=== PATIENT | male | born 1995 | race Caucasian/White ===

== ENCOUNTER 2019-07-09 00:39 | Inpatient (IN) | payer OTHER ==
[~2019-07-09] VITALS: Ht 177.8 cm; Wt 50.8 kg
--- NOTE | ~2019-07-09 | PROC ---
[address] [address] PROCEDURE REPORT Name: HILARIA RINCON Room: [address] IN M.R.#: [id number] Admission: 07/09/19 Attend Phys: Lito Frost Discharge: 07/10/19 Date of : 89 Report #: [id number] THIS REPORT FOR: //name// For GI report, please see the Provation report in Perceptive 7 content. By: 06Medical Records Staff KISHA /MEL
[~2019-07-09 00:39] MED LIST: BENADRYL25 MG PO; DARVOCET-N 1001 EACH PO; IBUPROFEN 200200 M1 PO; IBUPROFEN 600600 M1 PO; NOHOMEMEDICATIONS; OMEPRAZOLE40 MG PO; ONDANSETRON HCL4 M2 PO; PROAIR HFA8.5 GM IH; TAMIFLU30 MG PO; ZYRTEC10 M5 PO
[2019-07-09 00:44] VITALS: BP 147/84
[2019-07-09 00:58] LABS: HEMOGLOBIN 18.9 gm/dL (14.0-18.0); RDW-CV 12.9 % (10.5-14.5); WBC 19.2 thou/uL (4.0-11.0)
[2019-07-09 01:00] LABS: HEMATOCRIT 53.5 % (42.0-52.0); MCH 30.7 pg (26.0-34.0); MCHC 35.3 g/dL (28.0-37.0); MPV 9.2 fl. (7.2-11.1); NUCLEATED RBCS 0 /100WBC; PLATELET COUNT* 276 thou/uL (150-400); RBC 6.15 mil/uL (4.50-6.00)
[2019-07-09 01:04] LABS: CALCIUM 10.5 mg/dL (8.5-10.1); CREATININE 1.9 mg/dL (0.6-1.3); POTASSIUM 3.7 mmol/L (3.5-5.1)
[2019-07-09 01:08] LABS: ALBUMIN 5.8 g/dL (3.4-5.0); TOTAL BILIRUBIN 1.8 mg/dL (<0.1-1.0); TOTAL PROTEIN 10.2 g/dL (6.4-8.2)
[2019-07-09 02:09] LABS: ABSOLUTE EOSINOPHILS 0.4 thou/uL (0.0-0.7); ABSOLUTE LYMPHOCYTES 1.3 thou/uL (0.8-5.3); ABSOLUTE MONOCYTES 0.6 thou/uL (0.0-1.2); ABSOLUTE NEUTROPHILS 16.9 thou/uL (1.6-8.1); PLATELET ESTIMATE ADEQUATE
[2019-07-09 02:10] LABS: ANISOCYTOSIS Occasional; TOXIC GRANULATION 1+
[2019-07-09 03:23] VITALS: BP 130/74
[2019-07-09 04:00] VITALS: BP 126/81
--- NOTE | 2019-07-09 04:53 | NUR ---
PATIENT ADMITTED TO ROOM 108 FROM THE ER AT APPROXIMATELY 0345. VSS ON RA. PAIN WELL CONTROLLED AT THIS TIME. NO NAUSEA OR VOMITING SINCE BEING ADMITTED TO UNIT AT THIS TIME. PATIENT IS NPO AT THIS TIME. PATIENT ORIENTED TO ROOM AND POLICIES AND FALL AGREEMENT SIGNED. ASSESSMENT CHARTED. IV FLUIDS STARTED IN RIGHT AC-NS @ 100ML/HR. MOTHER AT BEDSIDE. PATIENT PUT IN SPECIAL CONTACT ISOLATION PER PROTOCOL D/T LIQUID STOOLS HE HAS BEEN HAVING DURING THE LAST 24HRS. PATIENT INSTRUCTED TO USE CALL LIGHT WHEN NEEDING ASSISTANCE. HOURLY ROUNDS MADE. WILL CONTNUE WITH PLAN OF CARE AND NURSING TO MONITOR.
[2019-07-09 10:30] VITALS: BP 137/78
[2019-07-09 12:37] LABS: CALCIUM 8.3 mg/dL (8.5-10.1); MAGNESIUM 1.7 mg/dL (1.8-2.4); POTASSIUM 3.8 mmol/L (3.5-5.1)
[2019-07-09 16:30] VITALS: BP 133/77
--- NOTE | 2019-07-09 19:00 | NUR ---
PATIENT PLEASANT AND COOPERATIVE W/ ASSESS AND CARES. STATES FEELING BETTER SHIFT PROGRESSED. FAMILY MEMBERS PRESENT IN THRU SHIFT. C/O SILVER AT TIMES. FLUIDS INFUSING W/O DIFF. HRLY ROUNDS DONE. PATIENT RESTING IN BED AT THIS TIME W/ FAMILY PRESENT. REVIEW OF POC FOR NPO AT [facility] FOR PROCEDURES IN AM. PATIENT STATES VERBALLY OF UNDERSTANDING. CONSENTS ARE SIGNED IN CHART. ~SAMRReema
[2019-07-10] VITALS (7 sets, daily range): BP systolic 112–133; BP diastolic 61–77
[2019-07-10 04:37] LABS: BASOPHILS 0.1 %; POLYS 75.3 %; RDW-CV 12.8 % (10.5-14.5)
[2019-07-10 04:41] LABS: ABSOLUTE LYMPHOCYTES 1.1 thou/uL (0.8-5.3); ABSOLUTE MONOCYTES 0.5 thou/uL (0.0-1.2); ABSOLUTE NEUTROPHILS 4.9 thou/uL (1.6-8.1); EOSINOPHILS 0.4 %; HEMATOCRIT 37.9 % (42.0-52.0); LYMPHOCYTES 16.6 %; MCHC 35.5 g/dL (28.0-37.0); MCV 87.4 fL (80.0-100.0); MONOCYTES 7.6 %; MPV 9.5 fl. (7.2-11.1); NUCLEATED RBCS 0 /100WBC; RBC 4.33 mil/uL (4.50-6.00); WBC 6.6 thou/uL (4.0-11.0)
[2019-07-10 05:05] LABS: HEMOGLOBIN 13.4 gm/dL (14.0-18.0); PLATELET COUNT* 136 thou/uL (150-400)
[2019-07-10 05:08] LABS: ALBUMIN 3.3 g/dL (3.4-5.0); ALKALINE PHOSPHATASE 60 U/L (46-116); ANION GAP 12 mmol/L (7-16); BUN 11 mg/dL (7-18); CALCIUM 8.3 mg/dL (8.5-10.1); CHLORIDE 106 mmol/L (98-107); CO2 23 mmol/L (21-32); CREATININE 0.7 mg/dL (0.6-1.3); GLUCOSE 106 mg/dL (70-99); POTASSIUM 3.5 mmol/L (3.5-5.1); SGOT 12 U/L (15-37); SGPT 26 U/L (30-65); SODIUM 141 mmol/L (136-145); TOTAL BILIRUBIN 0.7 mg/dL (<0.1-1.0); TOTAL PROTEIN 6.4 g/dL (6.4-8.2)
[2019-07-10 06:17] LABS: ESR (SEDRATE) 2 mm/hr (0-15)
[2019-07-10] MEDS ORDERED: CIPRO500 M1 PO (12:35)
[2019-07-10] MEDS ORDERED: FLAGYL500 M1 PO (12:39)
[2019-07-10] MEDS ORDERED: DICYCLOMINE PO (12:44)
[2019-07-10 14:09] LABS: IgA 296 mg/dL (90-386); IgG 818 mg/dL (700-1600); IgM 66 mg/dL (20-172)
--- NOTE | 2019-07-10 14:15 | NUR ---
PATIENT DISCHARGE TO HOME. PATIENT ALERT AND ORIENTED THRU SHIFT. PLEASANT AND COOPERATIVE W/ ASSESS AND CARES. DENIES N/V, STATES EATING REGULAR DIET LUNCH OF CHICKEN NOODLE SOUP AND LEMON ICE, KATINA WELL. X2 LOOSE STOOLS THIS SHIFT, PATIENT STATES DIARRHEA IS SLOWING DOWN. IV CATH SITES DISCONTINUED. DISCHARGE INSTRUCTIONS REVIEWED W/ PATIENT, SIGNIF OTHER AND MOTHER PRESENT IN RM. PATIENT STATES VERBALLY OF UNDERSTANDING OF INSTRUCTIONS. COPY OF INSTRUCTIONS AND ORIG SCRIPTS GIVEN TO PATIENT. BELONGINGS GATHERED PER PATIENT AND SIGNIF OTHER. PATIENT DRESSES INDEP. BELONGINGS LEFT ROOM W/ PATIENT AND SIGNIF OTHER. ESCORTED TO AWAITING VEHICLE PER PEDIS W/ SIGNIF OTHER AND NURSING PRESENT. STEADY GAIT NOTED. DENIES OTHER NEEDS AT THIS TIME. ~TJRN
--- NOTE | 2019-07-12 15:07 | PATH ---
[address] [address] PATHOLOGY RPT PROCEDURE Name: HILARIA RINCON Room: [address] IN M.R.#: [id number] Admission: 07/09/19 Date of : 89 Discharge: 07/10/19 Report #: [id number] Path Case #: [id number] [facility] Accession Number: [id number] . 01 Material submitted: . PART A: small bowel - SMALL BOWEL BIOPSIES PART B: duodenum - DUODENAL BULB BIOPSIES PART C: colon - RANDOM COLON BIOPSIES PART D: ileum - TERMINAL ILEUM . 01 Clinical history: . Chronic diarrhea A/B: For celiac disease C/D: Chronic diarrhea . 01 Frozen section diagnosis: . . /QMS . 02 Diagnosis: A. Small bowel biopsies: - Benign small intestinal mucosa with moderate nonspecific active inflammation and with prominent villous atrophy, negative for granulomas and dysplasia/adenomatous change. See comment. . B. Duodenal bulb biopsies: - Moderate nonspecific active duodenitis with prominence of Aurora's glands suggesting hyperplasia, negative for granulomas and dysplasia/adenomatous change. See comment. . C. Random colon biopsies: - Focal fresh hemorrhage in otherwise normal colonic mucosa. . D. Terminal ileum: - Mild nonspecific active ileitis, negative for granulomas, viral inclusions and dysplasia/adenomatous change. See comment. . (VIRAJ:misty; 07/12/2019) [facility] 07/12/2019 1035 Local . 02 Comment: In the small bowel and duodenal bulb biopsies (A and B), there is no significant intraepithelial lymphocytosis and therefore celiac disease is thought to be unlikely; however, there is prominent villous atrophy in specimen A, which could be attributed to the inflammation present. If there is a high clinical suspicion and/or serology suggests celiac disease, clearance of the inflammation with re-biopsy is recommended. In the terminal ileum biopsy (D), [place] [address] PATHOLOGY RPT PROCEDURE Name: MCKENZIEHILARIA BURROWS Room: [address] IN M.R.#: [id number] Admission: 07/09/19 Date of : 89 Discharge: 07/10/19 Report #: [id number] Path Case #: [id number] lymphoplasmacytosis or crypt distortion to elevate a concern for inflammatory bowel disease. (VIRAJ:misty; 07/12/2019) . 02 Electronically signed: . Jj Ortiz MD, Pathologist NPI- [id number] . 01 Gross description: . A. The specimen is received in formalin, labeled "Cone, Hilaria, small bowel biopsies" and consists of multiple fragments of conley tissue measuring 1.0 x 0.4 x 0.2 cm in aggregate which are entirely submitted in A1. . B. The specimen is received in formalin, labeled "Cone, Hilaria, duodenal bulb biopsies" and consists of 3 fragments of conley tissue measuring between 0.1 x 0.1 cm and 0.4 x 0.2 cm which are entirely submitted in B1. . C. The specimen is received in formalin, labeled "Cone, Hilaria, random colon biopsies" and consists of multiple fragments of green conley tissue measuring 2.1 x 1.0 x 0.3 cm in aggregate which are entirely submitted in C1. . D. The specimen is received in formalin, labeled "Cone, Hilaria, terminal ileum" and consists of 2 fragments of pink-conley tissue measuring 0.3 x 0.2 cm and 0.7 x 0.2 cm which are entirely submitted in D1. (SDY; 07/11/2019) SYU/SYU 07/11/[address] [place] [address] . Pathologist provided ICD-10: K52.9, K63.89, K29.80 . 02 CPT . 032530, 632955, 695125, 023830 Specimen Comment: A courtesy copy of this report has been sent to [phone], [phone] Specimen Comment: [phone], Specimen Comment: Report sent to ,DR LLOYD / DR GRANT Performed at: 01 [facility] [address], [place], [place] [id number] MD Frank He MD Phone: [phone] Performed at: [address] [facility] [address] [address] [place], [place] [id number] MD Jj Ortiz MD Phone: [phone]
--- NOTE | 2019-07-15 16:35 | CON ---
[facility] [address] [place] [address] CONSULTATION Name: HILARIA RINCON Room: [address] IN M.R.#: [id number] Admission: 07/09/19 Attend Phys: Lito Frost Discharge: 07/10/19 Date of : 89 Report #: [id number] THIS REPORT FOR: //name// CC: Giovani Cantrell DO DATE OF SERVICE: 07/09/2019 REFERRING PHYSICIAN: Jerry Cantrell DO REASON FOR CONSULTATION: Abdominal pain, diarrhea. IMPRESSION: 1. Diffuse abdominal pain associated with nausea, vomiting and diarrhea. 2. Severe dehydration secondary to #1. 3. Renal insufficiency secondary to #1. 4. Weight loss secondary to multiple issues. 5. History of eating disorder. RECOMMENDATIONS: 1. Agree with IV fluids at this point in time. 2. Await stool studies, but given his longstanding history of GI issues, I am going to proceed with upper and lower endoscopy with biopsies. 3. We will check celiac sprue serologies. 4. We will also check thyroid function test. 5. I have discussed the plans with the patient as well as his dad and his fiance and everyone is in agreement with the same. 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 He had been feeling poorly for a couple of days and then started having problems with severe abdominal pain, diarrhea, was going to bathroom every 10-15 minutes. He has had cramping in nature. He has also had problems with headache. He denied any fevers or chills or any other issues. Not any issues of any exposure to any antibiotics or anyone who has been ill. He has had some issues off and on with his current problems in the past, but he has never had any further evaluation of the same. It was thought to maybe he had some element of irritable bowel, but there is also some question that he had, maybe, an eating disorder and had some anorexia. He does have a lot of anxiety and he is not able to gain much of any weight. He is admitted to the hospital for further evaluation and treatment. ALLERGIES: [place] [address] CONSULTATION Name: HILARIA RINCON Room: [address] IN [facility].#: [id number] Admission: 07/09/19 Attend Phys: Lito Frost Discharge: 07/10/19 Date of : 89 Report #: [id number] MEDICATIONS: None. PAST MEDICAL HISTORY: Remarkable for previous asthma. He has had previous collapsed lung in the past and had lung resection in the past. There is some history of possibly eating disorder and anxiety. SOCIAL HISTORY: The patient previously smoked. He does not drink alcohol. There is no history of any illicit drug use. PHYSICAL EXAMINATION: GENERAL: Pleasant, but very cachectic 24-year-old white male who is awake and alert. CARDIOPULMONARY: Revealed a regular rate and rhythm. LUNGS: Clear. ABDOMEN: Soft and nontender. No rebound or guarding noted. LABORATORY DATA: From 07/09/2019 revealed a white count of 19.2, hemoglobin 18.9, which is markedly hemoconcentrated. His platelet count is 276,000, MCV is 87, RDW is 12.9. His differential is normal. His sodium is 139, potassium 3.7, chloride 97, bicarbonate is 24, his BUN was 15, creatinine 1.9 for GFR of only 43. Total bilirubin is 1.8, alkaline phosphatase 114, AST 16, ALT 29, albumin was 5.8, but it is markedly dehydrated. His total protein was 10.2. With hydration later in the day, his BUN and creatinine were down to 14 and 1.0 respectively and calcium now down to 8.3. CT scan of the abdomen and pelvis performed on 07/09/2019 revealed just fluid noted through the rectum and scattered throughout the colon, without any obvious mucosal thickening. The remainder of CT scan was unrevealing. DISCUSSION: At the present time, the patient has had severe nausea, vomiting, diffuse abdominal pain. We will proceed with upper and lower endoscopy and small bowel biopsies as well as random colon biopsies tomorrow. We will make further recommendations thereafter. <ELECTRONICALLY SIGNED> By: Reginaldo Antoine DO 07/15/19 1635 [id number] [id number] Antoine DO /nt
== END 2019-07-10 14:15 | disposition home or self-care (01) | DRG 392 ==
LOC: M.ERS 00:39 → M.TBA-ER 02:26 → M.ORTHSURG 02:26
PROVIDERS: Family Medicine; Internal Medicine Gastroenterology; ADMIT Internal Medicine
PROC: 0DBB8ZX Excision of Ileum, Via Natural or Artificial Opening Endoscopic, Diagnostic (ICD-10-PCS; principal; 2019-07-10)
PROC: 0DB98ZX Excision of Duodenum, Via Natural or Artificial Opening Endoscopic, Diagnostic (ICD-10-PCS; principal; 2019-07-10)
DX: K52.9 Noninfective gastroenteritis and colitis, unspecified (principal); Z68.1 Body mass index [BMI] 19.9 or less, adult; J45.909 Unspecified asthma, uncomplicated; Z87.891 Personal history of nicotine dependence; F41.9 Anxiety disorder, unspecified; K44.9 Diaphragmatic hernia without obstruction or gangrene; E86.0 Dehydration; R63.4 Abnormal weight loss; Z79.899 Other long term (current) drug therapy; Z28.21 Immunization not carried out because of patient refusal